=== PATIENT | male | born 1990 | race Caucasian/White ===

== ENCOUNTER 2024-01-17 11:23 | Emergency (ER) | payer MEDICARE, MEDICAID ==
[~2024-01-17] VITALS: Ht 127 cm; Wt 39.0 kg
[2024-01-17 11:24] VITALS: BP 119/74; RESP 16; TEMP 98.8; O2SAT 86
[2024-01-17 11:26] VITALS: PULSE 78; O2SAT 99
[2024-01-17] MEDS ORDERED: MOME45CR3 TP (12:13)
[2024-01-17] MEDS ORDERED: METH4TAB95 MT (12:13)
== END 2024-01-17 13:44 | disposition home or self-care (01) ==
LOC: ER 12:34
DX: L42 Pityriasis rosea (principal); Q90.9 Down syndrome, unspecified; Z98.890 Other specified postprocedural states
CPT/HCPCS: 99283